=== PATIENT | male | born 1995 | race Caucasian/White ===

== ENCOUNTER → 2016-12-11 | Outpatient (REF) | payer OTHER, BC | LOC: M WUC 09:07 | PROVIDERS: ATTEND Physician Assistant Medical | DX: J02.9 Acute pharyngitis, unspecified (principal) ==

== ENCOUNTER 2017-04-13 14:48 | Emergency (ER) | payer BC ==
[~2017-04-13] VITALS: Ht 185.4 cm; Wt 90.9 kg
[2017-04-13] MEDS ORDERED: KETOROLAC 30 MG/ML VIAL (J1885) IV ONE (16:15)
[2017-04-13] MEDS ORDERED: NS 1,000 ML IV ONE (16:15)
[2017-04-13] MEDS ORDERED: ACETAMINOPHEN 325 MG TAB PO ONE (16:15)
[2017-04-13 16:26] LABS: BASO % 0.4 % (0.0-1.0); EOS % 0.4 % (0.0-3.0); IMMATURE GRANULOCYTE % 0.2 % (0-0); LYMPH % 10.5 % (24.0-44.0); MEAN CORPUSCULAR HEMOGLOBIN 29.1 pg (27.0-33.0); MEAN CORPUSCULAR VOLUME 83.2 fl (80.0-96.0); MONO # 0.9 10^3/uL (0.0-0.8); MONO % 9.5 % (0.0-5.0); NEUTROPHILS # 7.2 10^3/uL (1.8-7.7); PLATELET COUNT, AUTOMATED 227 10^3/uL (150-450); RED CELL DISTRIBUTION WIDTH 12.4 % (11.5-14.5); WHITE BLOOD COUNT 9.2 10^3/uL (4.0-10.0)
[2017-04-13] MEDS ORDERED: GASTROGRAFIN SOLUTION 30ML PO ONE (16:45)
[2017-04-13 16:54] LABS: ALBUMIN 4.3 GM/DL (3.2-5.2); ALBUMIN/GLOBULIN RATIO 1.19 (1.00-1.93); ALKALINE PHOSPHATASE 84 U/L (45-117); ALT/SGPT 22 U/L (12-78); ANION GAP 7 MEQ/L (8-16); AST/SGOT 13 U/L (15-37); BILIRUBIN,DIRECT 0.1 MG/DL (0.0-0.2); BILIRUBIN,TOTAL 0.5 MG/DL (0.2-1.0); BLOOD UREA NITROGEN 11 MG/DL (7-18); CALCIUM LEVEL 9.2 MG/DL (8.5-10.1); CARBON DIOXIDE LEVEL 25 MEQ/L (21-32); CHLORIDE LEVEL 103 MEQ/L (98-107); CREATININE FOR GFR 1.07 MG/DL (0.70-1.30); GLUCOSE, FASTING 87 MG/DL (70-105); SODIUM LEVEL 135 MEQ/L (136-145); TOTAL PROTEIN 7.9 GM/DL (6.4-8.2)
[2017-04-13] MEDS ORDERED: GASTROGRAFIN SOLUTION 30ML (Q9963) PO ONE (17:15)
--- NOTE | 2017-04-13 19:08 | REP ---
HISTORY: Right lower quadrant pain. The examination is limited by the lack of intravenous contrast. Limited evaluation of the solid intraabdominal organs and gallbladder show no gross abnormalities. Limited evaluation of the pancreas and adrenal glands show no gross abnormalities. There is no nephroureterolithiasis, hydronephrosis or hydroureter. There are no urinary bladder calcifications. The intraabdominal and intrapelvic bowel loops are within normal limits. The appendix is well visualized and is normal. There are multiple round and mildly enlarged mesenteric lymph nodes. There is no pelvic sidewall adenopathy. There is no evidence of an intraabdominal or intrapelvic mass. Bone window technique throughout the exam shows the osseous structures to be within normal limits. IMPRESSION: Multiple mesenteric lymph nodes, as described above, possibly representing mesenteric adenitis. This should be correlated clinically with appropriate followup. There is no evidence of acute intraabdominal or intrapelvic inflammatory disease. Findings as described above. Signed by Mitchel Alvarado DO 04/13/2017 07:33 P
[2017-04-13 19:48] VITALS: BP 113/62
== END 2017-04-13 19:49 | disposition home or self-care (01) ==
LOC: M ED 14:48
DX: I88.0 Nonspecific mesenteric lymphadenitis (principal); R93.5 Abnormal findings on diagnostic imaging of other abdominal regions, including retroperitoneum
CPT/HCPCS: 74176; 80048; 80076; 81001; 83690; 85025; 96374; 99283; J1885; Q9963

== ENCOUNTER 2018-03-12 12:10 | Emergency (ER) | payer BC ==
[2018-03-12] MEDS: IBUPROFEN 800 MG TAB PO (12:43)
[2018-03-12] MEDS: ACETAMINOPHEN 325 MG TAB PO (12:44)
[2018-03-12] MEDS: NS 1,000 ML IV (15:20)
[2018-03-12 15:24] LABS: BASO % 0.3 % (0.0-1.0); EOS % 0.2 % (0.0-3.0); HEMATOCRIT 38.9 % (42.0-52.0); HEMOGLOBIN 13.7 g/dl (13.5-17.5); IMMATURE GRANULOCYTE % 0.4 % (0-3.0); LYMPH # 0.8 10^3/uL (1.5-6.5); LYMPH % 7.8 % (24.0-44.0); MEAN CORPUSCULAR HEMOGLOBIN 29.7 pg (27.0-33.0); MEAN CORPUSCULAR HGB CONC 35.2 g/dl (32.0-36.5); MEAN CORPUSCULAR VOLUME 84.4 fl (80.0-96.0); MONO # 0.9 10^3/uL (0.0-0.8); MONO % 8.9 % (0.0-5.0); NEUTROPHILS # 8.3 10^3/uL (1.8-7.7); NEUTROPHILS % 82.4 % (36.0-66.0); PLATELET COUNT, AUTOMATED 212 10^3/uL (150-450); RED BLOOD COUNT 4.61 10^6/uL (4.30-6.10); RED CELL DISTRIBUTION WIDTH 12.4 % (11.5-14.5); WHITE BLOOD COUNT 10.1 10^3/uL (4.0-10.0)
[2018-03-12] MEDS: GASTROGRAFIN SOLUTION 30ML PO ×2 (15:24→15:55)
[2018-03-12] MEDS ORDERED: ISOVUE-370 76% 100ML VIAL (Q9967) As Ordered (15:45)
[2018-03-12 15:51] LABS: ALKALINE PHOSPHATASE 79 U/L (45-117); ALT/SGPT 26 U/L (12-78); ANION GAP 9 MEQ/L (8-16); AST/SGOT 10 U/L (7-37); BILIRUBIN,TOTAL 0.8 MG/DL (0.2-1.0); BLOOD UREA NITROGEN 18 MG/DL (7-18); CARBON DIOXIDE LEVEL 26 MEQ/L (21-32); CHLORIDE LEVEL 98 MEQ/L (98-107); CREATININE FOR GFR 1.15 MG/DL (0.70-1.30); GLOMERULAR FILTRATION RATE > 60.0 (>60); GLUCOSE, FASTING 122 MG/DL (70-100); LIPASE 90 U/L (73-393); POTASSIUM SERUM 3.6 MEQ/L (3.5-5.1); SODIUM LEVEL 133 MEQ/L (136-145)
== END 2018-03-12 18:26 | disposition home or self-care (01) ==
LOC: M ED 12:10
DX: I88.0 Nonspecific mesenteric lymphadenitis (principal); J06.9 Acute upper respiratory infection, unspecified
CPT/HCPCS: Q9963